=== PATIENT | male | born 1990 | race Caucasian/White ===

== ENCOUNTER 2022-02-11 17:32 | Emergency (ER) | payer OTHER ==
[~2022-02-11 17:32] MED LIST: BACTRIM DS TAB1 EACH PO; KEFLEX250 MG PO; ULTRAM50 MG PO
[2022-02-11 19:10] LABS: CORONAVIRUS 2019 SARS-COV-2 NEGATIVE (NEGATIVE); INFLUENZA A NAA NEGATIVE (NEGATIVE)
== END 2022-02-11 19:51 | disposition home or self-care (01) ==
LOC: FER 17:32
PROVIDERS: Emergency Medicine
DX: B34.9 Viral infection, unspecified (principal); F17.210 Nicotine dependence, cigarettes, uncomplicated; Z20.822 Contact with and (suspected) exposure to COVID-19
CPT/HCPCS: 99283; U0002